=== PATIENT | male | born 2000 | race Caucasian/White ===

== ENCOUNTER 2021-07-06 16:41 | Day surgery (SDC) | payer OTHER ==
[~2021-07-06] VITALS: Ht 182.9 cm; Wt 68.0 kg
[~2021-07-06 16:41] MED LIST: LIDOCAINE 1% VIAL ONE; SODIUM CHLORIDE IRR BOTTLE IR ONE
[2021-07-06] MEDS ORDERED: NS 100ML 100 ML IV ONE (16:59)
[2021-07-06] MEDS ORDERED: LACTATED RINGERS 1,000 ML ONE (16:59)
[2021-07-06] MEDS ORDERED: ANCEF ONE (16:59)
[2021-07-06] MEDS ORDERED: LACTATED RINGERS 1,000 ML IV SCH (17:00)
[2021-07-06 17:07] VITALS: BP 134/73
[2021-07-06] MEDS ORDERED: SODIUM CHLORIDE IRR BOTTLE IR ONE (18:09)
[2021-07-06 18:28] VITALS: BP 129/65
--- NOTE | 2021-07-06 18:52 | OPH ---
DATE OF SURGERY: 07/06/2021 DICTATOR NAME: Carlos Stoll MD PREOPERATIVE DIAGNOSIS: Grade 2 open comminuted fracture of the distal phalanx of the left index finger. POSTOPERATIVE DIAGNOSIS: Grade 2 open comminuted fracture of the distal phalanx of the left index finger. OPERATIVE PROCEDURE: 1. Irrigation and debridement of skin, subcutaneous tissue and bone, left index finger distal phalanx. 1. Open reduction internal fixation left index distal phalanx. SURGEON: Carlos Stoll MD. ANESTHESIA: Digital block. TOURNIQUET TIME: 30 minutes. BLOOD LOSS: 10 mL DESCRIPTION OF INDICATIONS: The patient is a 21-year-old male who got his left index finger smashed yesterday between 2 pieces of metal at work late in the evening. The patient was seen in my office today and noted to have an open fracture that was grossly contaminated of the left index finger. The x-ray showed that he had a comminuted displaced fracture of the left index finger distal phalanx. His exam showed that he had a laceration starting dorsally and going around the radial aspect of the finger at the base of the nail, it was approximately 3 cm in length. The patient's fingernail had been totally avulsed. The patient had sensation and positive capillary refill to the tip of his finger. The patient was taken emergently to the operating room for irrigation, debridement as well as internal fixation. DESCRIPTION OF PROCEDURE: The patient was placed in the operating table in the supine position. A digital block with 1% lidocaine plain was given about the metacarpal head. The patient had the left upper extremity sterilely prepped and draped. A [place] drain was then placed about the base of the finger to act like a tourniquet. The patient had skin and subcutaneous tissue as well as small pieces of bone about the fracture site removed. Any nonviable skin and subcutaneous tissue was dissected sharply with a #15 knife blade. The patient had all nonviable skin proximally and distally about the wound excised sharply back to healthy edges of tissue. Again, the nail had already been avulsed. The fracture fragments were copiously irrigated with saline. The fracture was stabilized with a 0.035 K-wire that we passed through the DIP joint and into the middle phalanx for more stability. The patient then had the wounds again copiously irrigated and the skin edges were closed with an interrupted 3-0 Ethilon. Compressive dressing was applied. The tourniquet was released and was sent to recovery in stable condition. Carlos Stoll MD DR: [email or web address]/JACOB TID: [id number] RECEIPT: [id number]
== END 2021-07-06 18:59 | disposition home or self-care (01) ==
LOC: SURG 16:41
PROVIDERS: ATTEND Orthopaedic Surgery
DX: S62.631B Displaced fracture of distal phalanx of left index finger, initial encounter for open fracture (principal); X58.XXXA Exposure to other specified factors, initial encounter; Y93.89 Activity, other specified; Y92.89 Other specified places as the place of occurrence of the external cause
CPT/HCPCS: 26615; A4217 ×2; A4649; J0690; J2001; J7120; 76000; C1713